=== PATIENT | female | born 1945 | race Caucasian/White ===

== ENCOUNTER → 2019-03-30 08:23 | Outpatient (BNVA) | payer MEDICARE, MEDICAID, SELFPAY | PROVIDERS: Family Provider Family Medicine; PCP Family Medicine; Visit Provider Family Medicine | DX: I16.0 Hypertensive urgency (principal); E87.1 Hypo-osmolality and hyponatremia; I63.9 Cerebral infarction, unspecified; I10 Essential (primary) hypertension; E78.2 Mixed hyperlipidemia; G31.84 Mild cognitive impairment of uncertain or unknown etiology; Z91.19 Patient's noncompliance with other medical treatment and regimen | CPT/HCPCS: 80048 ==

== ENCOUNTER → 2019-05-28 10:43 | Outpatient (BNVA) | payer MEDICARE, MEDICAID, SELFPAY | PROVIDERS: Family Provider Family Medicine; PCP Family Medicine; Visit Provider Family Medicine | DX: E87.1 Hypo-osmolality and hyponatremia (principal); E78.5 Hyperlipidemia, unspecified; I63.9 Cerebral infarction, unspecified; I10 Essential (primary) hypertension; I16.0 Hypertensive urgency; E78.2 Mixed hyperlipidemia; G31.84 Mild cognitive impairment of uncertain or unknown etiology; Z91.19 Patient's noncompliance with other medical treatment and regimen; K21.9 Gastro-esophageal reflux disease without esophagitis; M17.11 Unilateral primary osteoarthritis, right knee | CPT/HCPCS: 80048 ==

== ENCOUNTER → 2019-08-26 08:50 | Outpatient (BNVA) | payer MEDICARE, MEDICAID, SELFPAY | PROVIDERS: Family Provider Family Medicine; PCP Family Medicine; Visit Provider Family Medicine | DX: E87.1 Hypo-osmolality and hyponatremia (principal); E78.5 Hyperlipidemia, unspecified; I63.9 Cerebral infarction, unspecified; I10 Essential (primary) hypertension; I16.0 Hypertensive urgency; E78.2 Mixed hyperlipidemia; G31.84 Mild cognitive impairment of uncertain or unknown etiology; Z91.19 Patient's noncompliance with other medical treatment and regimen; K21.9 Gastro-esophageal reflux disease without esophagitis; M17.11 Unilateral primary osteoarthritis, right knee | CPT/HCPCS: 80053; 80061 ==

== ENCOUNTER → 2020-03-31 08:37 | Outpatient (BNVA) | payer MEDICARE, SELFPAY | PROVIDERS: Family Provider Family Medicine; PCP Family Medicine; Visit Provider Family Medicine | DX: I10 Essential (primary) hypertension (principal); K21.9 Gastro-esophageal reflux disease without esophagitis; E78.5 Hyperlipidemia, unspecified; M17.11 Unilateral primary osteoarthritis, right knee; E87.1 Hypo-osmolality and hyponatremia; E78.2 Mixed hyperlipidemia; R25.2 Cramp and spasm | CPT/HCPCS: 80053; 83735 ==

== ENCOUNTER → 2020-07-28 09:57 | Outpatient (BNVA) | payer MEDICARE, MEDICAID, SELFPAY | PROVIDERS: Family Provider Family Medicine; PCP Family Medicine; Visit Provider Family Medicine | DX: I10 Essential (primary) hypertension (principal); K21.9 Gastro-esophageal reflux disease without esophagitis; I16.0 Hypertensive urgency; E87.1 Hypo-osmolality and hyponatremia; E78.2 Mixed hyperlipidemia; G31.84 Mild cognitive impairment of uncertain or unknown etiology; Z71.89 Other specified counseling | CPT/HCPCS: 80053 ==

== ENCOUNTER → 2021-02-08 10:00 | Outpatient (BNVA) | payer MEDICARE, MEDICAID, SELFPAY | PROVIDERS: Family Provider Family Medicine; PCP Family Medicine; Visit Provider Family Medicine | DX: R25.2 Cramp and spasm (principal); R53.83 Other fatigue; I10 Essential (primary) hypertension; E78.2 Mixed hyperlipidemia; E78.5 Hyperlipidemia, unspecified; M17.11 Unilateral primary osteoarthritis, right knee; K21.9 Gastro-esophageal reflux disease without esophagitis; E87.1 Hypo-osmolality and hyponatremia; G31.84 Mild cognitive impairment of uncertain or unknown etiology | CPT/HCPCS: 80053; 80061; 82607; 82652; 83735; 84443; 85025 ==

== ENCOUNTER → 2021-03-09 10:49 | Outpatient (BNVA) | payer MEDICARE, MEDICAID, SELFPAY | PROVIDERS: Family Provider Family Medicine; PCP Family Medicine; Visit Provider Family Medicine | DX: E87.1 Hypo-osmolality and hyponatremia (principal) | CPT/HCPCS: 80048 ==

== ENCOUNTER → 2021-07-14 12:36 | Outpatient (BNVA) | payer MEDICARE, MEDICAID, SELFPAY | PROVIDERS: Family Provider Family Medicine; PCP Family Medicine; Visit Provider Emergency Medicine | DX: R10.9 Unspecified abdominal pain (principal) | CPT/HCPCS: 74022; 81000 ==